=== PATIENT | male | born 1945 | race Two or more races ===

== ENCOUNTER 2019-09-28 17:04 | Emergency (ER) | payer OTHER, MEDICAID ==
[~2019-09-28] VITALS: Ht 177.8 cm; Wt 68.0 kg
[2019-09-28] MEDS ORDERED: IV NORMAL SALINE 1000 ML BAG IV ONE (17:15)
[2019-09-28] MEDS ORDERED: INSU100V28 SQ (17:29)
[2019-09-28] MEDS ORDERED: AMIN30LI27 PO (17:29)
[2019-09-28] MEDS ORDERED: CLOP75TA15 PO (17:29)
[2019-09-28] MEDS ORDERED: DOCU240C26 PO (17:29)
[2019-09-28] MEDS ORDERED: ACET-2154 PO (17:29)
[2019-09-28] MEDS ORDERED: ASCO500P18 PO (17:29)
[2019-09-28] MEDS ORDERED: CRAN425C6 PO (17:29)
[2019-09-28] MEDS ORDERED: ARGI1POW17 PO (17:29)
[2019-09-28] MEDS ORDERED: MULT-213 PO (17:29)
--- NOTE | 2019-09-28 17:30 | NUR ---
Pt was seen by .
[2019-09-28 17:36] LABS: BASOPHILS % (AUTO) 0.8 % (0.0-2.0); EOSINOPHILS # (AUTO) 0.1 K/uL (0.0-0.7); EOSINOPHILS % (AUTO) 2.4 % (0.0-7.0); HEMATOCRIT 26.9 % (36.7-47.1); HEMOGLOBIN 8.8 g/dL (12.5-16.3); LYMPHOCYTES # (AUTO) 1.8 K/uL (20.0-40.0); LYMPHOCYTES % (AUTO) 38.6 % (20.5-51.5); MEAN CORPUSCULAR HEMOGLOBIN 23.5 uug (23.8-33.4); MEAN CORPUSCULAR HGB CONC 33 g/dL (32.5-36.3); MEAN CORPUSCULAR VOLUME 71.7 fL (73.0-96.2); MONOCYTES # (AUTO) 0.6 K/uL (2.0-10.0); MONOCYTES % (AUTO) 13.4 % (0.0-11.0); NEUTROPHILS # (AUTO) 2.1 K/uL (1.8-8.9); NEUTROPHILS % (AUTO) 44.8 % (38.5-71.5); PLATELET COUNT (AUTO) 365 K/uL (152-348); RED BLOOD CELL COUNT(AUTO) 3.74 MIL/uL (4.06-5.63); WHITE BLOOD COUNT (AUTO) 4.8 K/uL (3.6-10.2)
[2019-09-28 17:41] LABS: CREATININE 0.8 mg/dL (0.6-1.3); POTASSIUM 3.5 mmol/L (3.5-5.1)
[2019-09-28 17:46] LABS: BILIRUBIN,DIRECT 0.1 mg/dL (0.0-0.2); BILIRUBIN,TOTAL 0.3 mg/dL (0.2-1.0); TOTAL PROTEIN, SERUM 8.4 g/dL (6.4-8.2)
[2019-09-28 17:51] LABS: *BILIRUBIN,URIN NEGATIVE (NEGATIVE); *BLOOD, URINE 1+ (NEGATIVE); *CLARITY,URINE CLOUDY (CLEAR); *COLOR,URINE YELLOW (YELLOW); *KETONES,URINE NEGATIVE (NEGATIVE); *UROBILINOGEN,URINE 0.2 E.U./dl (NORMAL); LEUKOCYTE ESTERASE ,URINE 3+ (NEGATIVE); NITRITE, URINE POSITIVE (NEGATIVE); PH,URINE >=9.0 (5.0-8.0); UGLUCOSE NEGATIVE (NEGATIVE)
[2019-09-28 17:59] LABS: BACTERIA,URINE MANY /HPF (NONE SEEN); TRIPLE PHOSPHATE CRYSTAL,UR MANY /HPF (NONE SEEN); WBC,URINE 80-100 /HPF (0-3)
[2019-09-28] MEDS ORDERED: CEFTRIAXONE /D5W 50ML IVPB **ER PYXIS IV ONE (18:13)
[2019-09-28] MEDS ORDERED: CEFTRIAXONE 1 G in IV DEXTROSE 5% 50 ML IV ONE (18:15)
--- NOTE | 2019-09-28 18:30 | NUR ---
Pt is accepted to [facility].Report given to Aura SALVADOR. accepted patient.ETA for ambulance is 1930.
--- NOTE | 2019-09-28 19:15 | NUR ---
Report given to ALMA DELIA Saul.
--- NOTE | 2019-09-28 19:25 | NUR ---
Spoke with pt Hannah regarding pt transfering to Transfer.Pt refused for pt to be transfer to Transfer.Nursing signal supervisor Amy was notified.
--- NOTE | 2019-09-28 20:10 | NUR ---
Dr. Posey speaking with [place] Dr. Dhaliwal.
--- NOTE | 2019-09-28 20:14 | NUR ---
Dr. Posey speaking with MD nursing supervisor machine setter.
--- NOTE | 2019-09-28 20:26 | NUR ---
Dr. Posey speaking with Dr. Arreguin of [place].
--- NOTE | 2019-09-28 21:02 | NUR ---
Spoke with Nursing Intern Brand Margie of the [place], Dr. Dhaliwal urologist willing to accept pt under diagnosis of UTI sepsis, awaiting phone call from Dr. Posey for report.
--- NOTE | 2019-09-28 22:51 | NUR ---
Called [facility] for transport of patient back to [facility]. ETA 1.5 hours ~0015, trip#[id number]
--- NOTE | 2019-09-28 23:27 | NUR ---
PATIENT IS TO RETURN TO [facility].AWAITING TRANSPORT AND FACILITY AWARE.
--- NOTE | 2019-09-29 00:48 | NUR ---
Called [facility], trip delayed one more hour.
--- NOTE | 2019-09-29 01:53 | NUR ---
[facility] HERE TO TRANSPORT PATIENT BACK TO [facility],REPOCALLED TO [facility] AND PT TRANSFERED TO [facility] FOR TRANSPORT.
== END 2019-09-29 01:59 | disposition home or self-care (01) ==
LOC: ER 17:14
DX: T83.091A Other mechanical complication of indwelling urethral catheter, initial encounter (principal); N39.0 Urinary tract infection, site not specified; E11.9 Type 2 diabetes mellitus without complications; Z91.013 Allergy to seafood; Z88.8 Allergy status to other drugs, medicaments and biological substances; Z79.899 Other long term (current) drug therapy; Z79.4 Long term (current) use of insulin; Z79.01 Long term (current) use of anticoagulants
CPT/HCPCS: 36415; 80048; 80076; 81000; 81001; 83690; 85025; 87077; 87086; 87186; 96374; 99283; J0696; A4217; A4663; J7030